=== PATIENT | female | born 2000 | race Caucasian/White ===

== ENCOUNTER 2020-08-01 07:56 | Inpatient (IN) | payer OTHER ==
[~2020-08-01] VITALS: Ht 177.8 cm; Wt 81.6 kg
[~2020-08-01 07:56] MED LIST: OMEPRAZOLE20 MG PO; PEPCID40 MG PO; XULANE PATCH1 EACH TD; ZOFRAN ODT4 MG PO
--- NOTE | 2020-08-02 19:07 | PR ---
[facility] [address] [facility] [place], [place] [address] Signed Progress Notes IP Datetime Report Generated by CPN: 08/02/2020 19:07 PROGRESS NOTES: [id number] Impression: Reassuring Heart Rate Plan: Continue Present Management; Induction; Cervical Ripening VITAL SIGNS: [id number] Vital Signs: Reviewed VS Notable Details: elevated BP, will recheck in 10 minutes EXAM: [id number] Dilatation: 1.5 Effacement: 80 Station: -2 Contractions: irregular MEMBRANES: [id number] Comments: EIOL at 40w4d s/p cytotec x 2 (vaginal) Plan: continue cytotec for cervical ripening, has progressed from closed/thick to 1.5cm/80% effaced. Epidural prn for pain. Anticipate amniotomy in am, sooner if progressing well overnight/ internal monitoring needed FETUS A: [id number] FHR Baseline: 150 Variability: Moderate 6-25bpm Accelerations: None Decelerations: None FHR Category: Category I Presentation: Vertex FETUS B: [id number] Signing Physician: Brendan Melissa DO Copies: ~ *Electronically Signed* 08/02/20 190 BRENDAN MELISSA DO PATIENT NAME: GRICELDA GONSALEZ PROGRESS NOTE DATE OF : 99 PHYSICIAN: BRENDAN MELISSA DO RPT #: [id number] REPORT IS CONFIDENTIAL AND NOT TO BE RELEASED WITHOUT AUTHORIZATION
--- NOTE | 2020-08-02 20:39 | NUR ---
[facility] RAPID COVID TEST DONE PER ORDER. COVID TEST COLLECTED FROM BOTH NARES W/O ISSUE. PT TOLERATED WELL.
--- NOTE | 2020-08-02 22:49 | PR ---
[facility] [address] [place], [place] [address] Signed Progress Notes IP Datetime Report Generated by CPN: 08/02/2020 22:49 PROGRESS NOTES: [id number] Impression: Reassuring Heart Rate Other Procedures: Cook catheter placement Plan: Continue Present Management; Cervical Ripening VITAL SIGNS: [id number] Vital Signs: Reviewed VS Notable Details: elevated BP, will recheck in 10 minutes EXAM: [id number] Dilatation: 1.5 Effacement: 80 Station: -2 Contractions: irregular MEMBRANES: [id number] Membranes Status: Intact Comments: EIOL at 40 4/7 weeks gestation s/p cytotec x 2, unable to place 3rd due to tachysystole which palpates mild, nonresponsive to fluid bolus cook catheter discussed with pt, placed without difficulty. 40mL sterile saline in each balloon, plan to add 20mL to each balloon every 20 minutes until 80mL in both balloons. FETUS A: [id number] FHR Baseline: 150 Variability: Moderate 6-25bpm Accelerations: None Decelerations: None FHR Category: Category I Presentation: Vertex FETUS B: [id number] Signing Physician: Brendan Melissa DO Copies: ~ *Electronically Signed* 08/02/20 4706 BRENDAN MELISSA DO PATIENT NAME: GRICELDA GONSALEZ PROGRESS NOTE DATE OF : 99 PHYSICIAN: BRENDAN MELISSA DO RPT #: [id number] REPORT IS CONFIDENTIAL AND NOT TO BE RELEASED WITHOUT AUTHORIZATION
--- NOTE | 2020-08-03 04:03 | PR ---
[facility] [address] [facility] [place] [facility] [place], [place] [address] Signed Progress Notes IP Datetime Report Generated by CPN: 08/03/2020 04:03 PROGRESS NOTES: [id number] Impression: Normal Progression of Labor Procedures: Intrauterine Pressure Catheter Other Procedures: Cook catheter placement Plan: Continue Present Management VITAL SIGNS: [id number] Vital Signs: Reviewed VS Notable Details: elevated BP, will recheck in 10 minutes EXAM: [id number] Dilatation: 5.5 Effacement: 80 Station: -2 Contractions: irregular MEMBRANES: [id number] Membranes Status: Intact Comments: EIOL, now 40 5/7 weeks gestation s/p cytotec x [address] for 4 hours s/p SROM moderate amount clear fluid IUPC placed without difficulty Continue close monitoring FETUS A: [id number] FHR Baseline: 150 Variability: Moderate 6-25bpm Accelerations: None Decelerations: None FHR Category: Category I Presentation: Vertex FETUS B: [id number] Signing Physician: Brendan Melissa DO Copies: ~ *Electronically Signed* 08/03/20 0403 BRENDAN MELISSA DO PATIENT NAME: GRICELDA GONSALEZ PROGRESS NOTE DATE OF : 99 PHYSICIAN: BRENDAN MELISSA DO RPT #: [id number] REPORT IS CONFIDENTIAL AND NOT TO BE RELEASED WITHOUT AUTHORIZATION
--- NOTE | 2020-08-03 04:16 | PR ---
[facility] [address] [facility] [place], [place] [address] Signed Progress Notes IP Datetime Report Generated by CPN: 08/03/2020 04:16 PROGRESS NOTES: [id number] Impression: Normal Progression of Labor Procedures: Scalp Electrode Other Procedures: Cook catheter placement Plan: Continue Present Management VITAL SIGNS: [id number] Vital Signs: Reviewed VS Notable Details: elevated BP, will recheck in 10 minutes EXAM: [id number] Dilatation: 5.5 Effacement: 80 Station: -2 Contractions: irregular MEMBRANES: [id number] Membranes Status: Intact Comments: FSE placed without difficulty FETUS A: [id number] FHR Baseline: 150 Variability: Moderate 6-25bpm Accelerations: None Decelerations: None FHR Category: Category I Presentation: Vertex FETUS B: [id number] Signing Physician: Brendan Melissa DO Copies: ~ *Electronically Signed* 08/03/20 0416 BRENDAN MELISSA DO PATIENT NAME: GRICELDA GONSALEZ PROGRESS NOTE DATE OF : 99 PHYSICIAN: BRENDAN MELISSA DO RPT #: [id number] REPORT IS CONFIDENTIAL AND NOT TO BE RELEASED WITHOUT AUTHORIZATION
--- NOTE | 2020-08-03 05:27 | PR ---
[facility] [address] [place], [place] [address] Signed Progress Notes IP Datetime Report Generated by CPN: 08/03/2020 05:27 PROGRESS NOTES: [id number] Impression: Non-reassuring Heart Rate Procedures: Scalp Electrode Other Procedures: Cook catheter placement Plan: Deliver- Section Informed Consent Obtain: Section Delivery; Risks, Benefits and Alternatives Discussed VITAL SIGNS: [id number] Vital Signs: Reviewed VS Notable Details: elevated BP, will recheck in 10 minutes EXAM: [id number] Dilatation: 5.5 Effacement: 80 Station: -2 Contractions: irregular MEMBRANES: [id number] Membranes Status: Ruptured Comments: EIOL at 40 5/7 weeks gestation s/p cytotec x 2, cook catheter, SROM Nonreassuring heart tones, previously responsive to maternal repositioning Ephedrine 5mg administered IV Risks, benefits, and alternatives to including risks of bleeding, infection, damage to surrounding organs, need for repeat or referral for TOLAC discussed with pt and FOB (present at bedside). Questions answered to their apparent satisfaction and they elected to proceed. FETUS A: [id number] FHR Baseline: 150 Variability: Moderate 6-25bpm Accelerations: None Decelerations: None FHR Category: Category I Presentation: Vertex FETUS B: [id number] Signing Physician: Brendan Melissa DO *Electronically Signed* 08/03/20 0527 BRENDAN MELISSA DO PATIENT NAME: GRICELDA GONSALEZ PROGRESS NOTE DATE OF : 99 PHYSICIAN: BRENDAN MELISSA DO RPT #: [id number] REPORT IS CONFIDENTIAL AND NOT TO BE RELEASED WITHOUT AUTHORIZATION [address], [place] [address] Signed Copies: ~ *Electronically Signed* 08/03/20 0527 BRENDAN MELISSA DO PATIENT NAME: GRICELDA GONSALEZ PROGRESS NOTE DATE OF : 99 PHYSICIAN: BRENDAN MELISSA DO RPT #: [id number] REPORT IS CONFIDENTIAL AND NOT TO BE RELEASED WITHOUT AUTHORIZATION
--- NOTE | 2020-08-03 07:06 | NUR ---
08/03/20 0706 Linsey Rob 0700 PATIENT ARRIVES TO ROOM 101, AWAKE OFF/ON, BUT VERY DROWSY. RESP EVEN AND UNLABORED, ROOM AIR SATS >97%. DAD AND BABY IN ROOM. PATIENT DENIES PAIN, ONLY THAT SHE FEELS COLD. WARM BLANKETS ON.
--- NOTE | 2020-08-04 12:54 | PR ---
[facility] [place] [facility] [address] [place], [place] [address] Signed PP Progress Notes Datetime Report Generated by CPN: 08/04/2020 12:54 SUBJECTIVE: [id number] Pain: Within Normal Limits Nausea/Vomiting: Denies Flatus: Yes Bowel Movement: No Vital Signs: [id number] Vital Signs: Reviewed; Within Normal Limits EXAM: Ongoing Cardiovascular: Normal Respiratory: Normal Abdomen/Uterus: Normal Lochia: Normal Extremities: Normal Incision: Normal Progress: Normal Exam Comments: RRR, 1+ bilateral lower extremity edema Fundus firm below umbilicus Incision c/d/i, minimal non-expanding strikethrough on dressing IMPRESSION/PLAN/PROCEDURES: [id number] Impression: Normal Progression Plan: Continue Present Management Procedures: None Progress Notes: POD#1 s/p PLTCS for non-reassuring heart tones -progressing well . Discussed importance of using NSAIDs/tylenol for pain mgmt and healing, currently declining all medications. Using ice for incisional pain, recommended trying abdominal binder for extra support while ambulating. -Herrera removed, unable to void with initial attempt, straight cath for 650mL. Discussed importance of continued attempts and use of aids (peppermint oil, running water), to promote void. Will continue to monitor -tachycardia initially postop, resolved - well O positive/ Rubella Immune Anticipate DC to home tomorrow vs Sunday Signing Physician: Brendan Melissa DO *Electronically Signed* 08/04/20 9816 BRENDAN MELISSA DO PATIENT NAME: GRICELDA GONSALEZ PROGRESS NOTE DATE OF : 99 PHYSICIAN: BRENDAN MELISSA DO RPT #: [id number] REPORT IS CONFIDENTIAL AND NOT TO BE RELEASED WITHOUT AUTHORIZATION [address] [address] Signed Copies: ~ *Electronically Signed* 08/04/20 1254 BRENDAN MELISSA DO PATIENT NAME: GRICELDA GONSALEZ PROGRESS NOTE DATE OF : 99 PHYSICIAN: BRENDAN MELISSA DO RPT #: [id number] REPORT IS CONFIDENTIAL AND NOT TO BE RELEASED WITHOUT AUTHORIZATION
--- NOTE | 2020-08-05 10:21 | PR ---
[facility] [address] [place] [place], [place] [address] Signed PP Progress Notes Datetime Report Generated by CPN: 08/05/2020 10:21 SUBJECTIVE: [id number] Pain: Within Normal Limits Nausea/Vomiting: Denies Flatus: Yes Bowel Movement: Yes Vital Signs: [id number] Vital Signs: Reviewed; Within Normal Limits EXAM: Ongoing Cardiovascular: Normal Respiratory: Normal Abdomen/Uterus: Normal Lochia: Normal Vulva/Perineum: Not Done Breasts: Not Done CVA Tenderness: Normal Extremities: Normal Incision: Normal Progress: Normal Exam Comments: Fundus firm U-2 nontender. Incision healing well. IMPRESSION/PLAN/PROCEDURES: [id number] Impression: Normal Progression Plan: Discharge Procedures: None Progress Notes: Pt seen and examined. Doing well. Ambulating, voiding, and tolerating full diet. Pain and lochia minimal. well. No questions or concerns. Desires d/c home today. Reviewed d/c instructions in detail. All questions answered Signing Physician: Dinesh Smiley DO Copies: ~ *Electronically Signed* 08/05/20 1021 DINESH SMILEY DO PATIENT NAME: GRICELDA GONSALEZ PROGRESS NOTE DATE OF : 99 PHYSICIAN: DINEHS SMILEY DO RPT #: [id number] REPORT IS CONFIDENTIAL AND NOT TO BE RELEASED WITHOUT AUTHORIZATION
--- NOTE | 2020-08-10 07:05 | OR ---
[facility] [address] [place], [place] [address] Signed DATE OF OPERATION: 08/03/2020 SURGEON: Brendan Melissa DO CAR BARN LABORER: Dr. Smiley PREOPERATIVE DIAGNOSES: 1. Forty-weeks gestation. 2. Non-reassuring heart tone, remote from delivery. POSTOPERATIVE DIAGNOSES: 1. Forty-weeks gestation. 2. Non-reassuring heart tone, remote from delivery. 3. Occiput posterior position. ESTIMATED BLOOD LOSS: 450 mL. DRAINS: Herrera. LINES: None. SPECIMENS: Placenta, cord blood, cord gases. FINDINGS: Term, viable female , weighing 7 pounds 3 ounces. Apgars 8 and 9 at one and five minutes, respectively. Normal-appearing uterus and bilateral tubes and ovaries. OPERATIVE PROCEDURE: Primary low-transverse . INDICATIONS: Non-reassuring heart tones. DESCRIPTION OF PROCEDURE: The patient was taken back to the operating room, where she was given 2 g of Ancef. Electronically Signed By: BRENDAN MELISSA DO 08/10/20 0705 PATIENT NAME: GRICELDA GONSALEZ OPERATIVE REPORT DATE OF : 99 REPORT #: [id number] PHYSICIAN: BRENDAN MELISSA DO PCP: BIRGIT RODRIGUEZ MD REPORT IS CONFIDENTIAL AND NOT TO BE RELEASED WITHOUT AUTHORIZATION [facility] [address] [place], [place] [address] Signed Epidural was bolused and SCDs were placed bilaterally. Herrera was already in place. The patient was positioned in supine position with a leftward tilt and prepped and draped in the normal sterile fashion. Anesthesia was found to be adequate. Pfannensteil incision was made with a scalpel and carried through to the underlying fascia. Superficial bleeders were cauterized with Bovie cautery. Fascia was incised with a scalpel and fascial incision was extended laterally using Arriola scissors. Superior and inferior margins of the fascia were grasped with Kochers and elevated and underlying rectus muscle dissected off bluntly and sharply with Arriola scissors. Peritoneum was entered bluntly and incision was extended inferiorly with Arriola scissors with excellent visualization to avoid the bladder. Karsten retractor was placed. Hysterotomy was made yielding a moderate amount of dark thick meconium fluid. 's head was easily grasped and gently elevated to hysterotomy and was delivered without difficulty noting to be in a ROP position. Cord was immediately doubly clamped and cut and baby was handed to awaiting nursery team. Segment of cord was collected for cord gases. Cord blood was collected for type and Shawna. Placenta was extracted manually with gentle cord traction and noted to be meconium stained with a centrally inserted cord. Uterus was cleared of clots and debris. Hysterotomy was closed in a double-layered closed, first with 0-Monocryl in a running fashion and second with 0 Monocryl in an imbricating fashion. Hysterotomy was inspected and noted to be hemostatic. Abdomen was copiously irrigated with sterile saline. Uterus, tubes, and ovaries were inspected, the findings as noted above. Sheet of Acell was placed over the hysterotomy. Peritoneum was closed in a running fashion with 3-0 Vicryl. Rectus muscle was reapproximated with 0-Vicryl in a simple interrupted fashion. Perforating vessels were cauterized with Bovie cautery and Acell powder was applied to rectus muscles. Fascia was closed with 0 Vicryl in a running fashion starting at each apex working medially and meeting at midline. Subcutaneous layer was closed with 3-0 Vicryl in an interrupted fashion and skin was closed with skin clips. Uterus was creded with minimal blood clots. Lap and sponge counts were correct x2. The patient tolerated the procedure well, was taken with baby to Recovery in the LDRP room. Brendan Melissa DO EMZ/MODL /[id number] Electronically Signed By: BRENDAN MELISSA DO 08/10/20 0705 PATIENT NAME: GRICELDA GONSALEZ OPERATIVE REPORT DATE OF : 99 REPORT #: [id number] PHYSICIAN: BRENDAN MELISSA DO PCP: BIRGIT RODRIGUEZ MD REPORT IS CONFIDENTIAL AND NOT TO BE RELEASED WITHOUT AUTHORIZATION [address] [place], [place] [address] Signed Copies: ~ Electronically Signed By: BRENDAN MELISSA DO 08/10/20 0705 PATIENT NAME: GRICELDA GONSALEZ BRADY OPERATIVE REPORT DATE OF : 99 REPORT #: [id number] PHYSICIAN: BRENDAN MELISSA DO PCP: BIRGIT RODRIGUEZ MD REPORT IS CONFIDENTIAL AND NOT TO BE RELEASED WITHOUT AUTHORIZATION
== END 2020-08-05 13:00 | disposition home or self-care (01) | DRG 788 ==
LOC: FBC 08-02 07:53
PROVIDERS: ADMIT Obstetrics & Gynecology; ATTEND Obstetrics & Gynecology
PROC: 3E0P7VZ Introduction of Hormone into Female Reproductive, Via Natural or Artificial Opening (ICD-10-PCS; 2020-08-02)
PROC: 0U7C7ZZ Dilation of Cervix, Via Natural or Artificial Opening (ICD-10-PCS; 2020-08-02)
PROC: 10H07YZ Insertion of Other Device into Products of Conception, Via Natural or Artificial Opening (ICD-10-PCS; 2020-08-03)
PROC: 00HU33Z Insertion of Infusion Device into Spinal Canal, Percutaneous Approach (ICD-10-PCS; 2020-08-03)
PROC: 3E0R3BZ Introduction of Anesthetic Agent into Spinal Canal, Percutaneous Approach (ICD-10-PCS; 2020-08-03)
PROC: 10D00Z1 Extraction of Products of Conception, Low, Open Approach (ICD-10-PCS; principal; 2020-08-03 05:53)
DX: O64.0XX0 Obstructed labor due to incomplete rotation of fetal head, not applicable or unspecified (principal); Z3A.40 40 weeks gestation of pregnancy; Z37.0 Single live birth; O76 Abnormality in fetal heart rate and rhythm complicating labor and delivery; O77.0 Labor and delivery complicated by meconium in amniotic fluid; Z91.040 Latex allergy status; O21.0 Mild hyperemesis gravidarum
CPT/HCPCS: 01961; 36415; 82803; 85027; A9270; C9803; J0456; J0690; J1885; J2001; J2250; J2274; J2405; J2590; J3010; J7121; U0003

== ENCOUNTER 2021-12-19 07:09 | Inpatient (IN) | payer OTHER ==
[~2021-12-19] VITALS: Ht 170.2 cm; Wt 81.6 kg
--- NOTE | 2022-01-10 08:53 | NUR ---
01/10/22 0853 Dottie Gray 0831 PATIENT BACK TO ROOM. REPORT RECIEVED FROM KEYSHA BERMAN. IVF INFUSING WITH 20 OF PIT. SITE IS PATENT. PATIENT IS AWAKE. DENIES ANY PAIN OR NAUSEA. PATIENT UNABLE TO MOVE FEET. SPINAL EDUCATION GIVEN. VITAL SIGNS WNL. 0849 PATIENT HEAD OF BED INCREASED. PATIENT DENIES ANY CONCERNS. BABY ON CHEST WITH FBC RN AT BEDSIDE.
--- NOTE | 2022-01-10 22:28 | OR ---
[facility] [address] [place], [place] [address] Signed DATE OF OPERATION: 01/10/2022 SURGEON: Philip Costa MD Patient of Dr. Costa. PREOPERATIVE DIAGNOSIS: Term , previous section. POSTOPERATIVE DIAGNOSIS: Term , previous section. PROCEDURE: Repeat low transverse segment section, delivery of live female . REED WORKER: Dr. Alvarado. ANESTHESIA: Spinal. ESTIMATED BLOOD LOSS: 400 mL. COMPLICATIONS: None. DRAINS: Herrera to bladder. FINDINGS: Live female infant, Apgars 9 and 9. Weight 7 pounds 7 ounces. Normal uterus. Normal tubes and ovaries bilateral. DESCRIPTION OF PROCEDURE: The patient was brought to the operating room, placed in supine position. After adequate spinal anesthesia was obtained, the patient was prepped and draped in usual sterile fashion. A Herrera catheter was placed in the bladder. A Pfannenstiel skin incision was made through previous surgical scar using a scalpel. The subcutaneous tissue was dissected with Bovie and scalpel. Fascia was nicked with scalpel and Electronically Signed By: PHILIP COSTA MD 01/10/22 2228 PATIENT NAME: GRICELDA GONSALEZ OPERATIVE REPORT DATE OF : 99 REPORT #: [id number] PHYSICIAN: PHILIP COSTA MD PCP: BIRGIT RODRIGUEZ MD REPORT IS CONFIDENTIAL AND NOT TO BE RELEASED WITHOUT AUTHORIZATION [facility] [address] [place], [place] [address] Signed extended in transverse fashion using curved scissors. The underlying abdominal musculature was bluntly and sharply from the fascia above and below the incision. The abdominal musculature was bluntly sharply along the midline. The peritoneum was grasped with hemostats, elevated, nicked with curved scissors, extended vertical fashion using curved scissors. The Karsten self-retaining retractor was inserted into the incision. The lower uterine segment was identified and carefully nicked with scalpel. Bulging bag of clear fluid came from the incision. The incision was extended in transverse fashion using finger dissection and pickups with teeth used to open the amniotic sac. The infant was noted to be in vertex LOT presentation. The head was easily delivered from the incision. The cord was noted to be around the neck. Once this was removed, the rest of the was then easily delivered from the incision. The cord was doubly clamped and cut. The infant passed off table in good condition to awaiting nurse. The placenta was manually removed and the uterine cavity was explored with a lap pad to remove any retained membranes. An angle stitch of 0 Monocryl was placed at one end of the incision and a running locking stitch of 0-Monocryl starting at the other end used to close the incision. A 2nd running stitch of 0 Monocryl was used to imbricate the 1st layer. Good hemostasis was noted. The entire pelvis was irrigated, suctioned and examined noted to have good hemostasis. The anterior wall peritoneum was then closed using running stitch of 2-0 Vicryl suture. The abdominal musculature was reapproximated using interrupted stitch of 0 Vicryl suture. Abdominal wall incision was irrigated, suctioned, and examined, and any bleeding spots cauterized with the Bovie. The fascia was then closed using two running stitch of 0 Vicryl suture meeting in the midline. Subcutaneous tissue was irrigated, suctioned, and examined, and any bleeding spots were cauterized with the Bovie. Subcutaneous tissue was closed using interrupted stitches of 3-0 Vicryl suture and the skin reapproximated using skin clips. The patient tolerated the procedure well, went to recovery room in good condition. The sponge, needle, and instrument count was correct at the end of procedure. MD TR Lopez/MODL /[id number] Electronically Signed By: PHILIP COSTA MD 01/10/22 2228 PATIENT NAME: GRICELDA GONSALEZ OPERATIVE REPORT DATE OF : 99 REPORT #: [id number] PHYSICIAN: PHILIP COSTA MD PCP: BIRGIT RODRIGUEZ MD REPORT IS CONFIDENTIAL AND NOT TO BE RELEASED WITHOUT AUTHORIZATION [facility] [address] [place] [id number] Signed Copies: ~ Electronically Signed By: PHILIP COSTA MD 01/10/22 2228 PATIENT NAME: GRICELDA GONSALEZ OPERATIVE REPORT DATE OF : 99 REPORT #: [id number] PHYSICIAN: PHILIP COSTA MD PCP: BIRGIT RODRIGUEZ MD REPORT IS CONFIDENTIAL AND NOT TO BE RELEASED WITHOUT AUTHORIZATION
--- NOTE | 2022-01-11 09:24 | PR ---
[facility] [address] [facility] [place], [place] [address] Signed PP Progress Notes Datetime Report Generated by CPN: 01/11/2022 09:24 SUBJECTIVE: [id number] Pain: Within Normal Limits Nausea/Vomiting: Denies Vital Signs: [id number] Vital Signs: Reviewed; Within Normal Limits EXAM: Ongoing Abdomen/Uterus: Normal Lochia: Normal Extremities: Normal Incision: Normal IMPRESSION/PLAN/PROCEDURES: [id number] Impression: Normal Progression Plan: Continue Present Management Procedures: None Progress Notes: Doing well, without complaint. Sitting up, has been moving and voiding without difficulty. Patient had elevated BP's last night, so PIH Panel and Urine PC Ratio done, which were normal; better today. D/C Herrera this morning. Signing Physician: Jaylan Mcdonough MD Copies: ~ *Electronically Signed* 01/11/22923 JAYLAN MCDONOUGH MD PATIENT NAME: GRICELDA GONSALEZ PROGRESS NOTE DATE OF : 99 PHYSICIAN: JAYLAN MCDONOUGH MD RPT #: [id number] REPORT IS CONFIDENTIAL AND NOT TO BE RELEASED WITHOUT AUTHORIZATION
--- NOTE | 2022-01-12 08:26 | PR ---
[facility] [address] [place] [address] Signed PP Progress Notes Datetime Report Generated by CPN: 01/12/2022 08:26 SUBJECTIVE: [id number] Pain: Within Normal Limits Nausea/Vomiting: Denies Vital Signs: [id number] Vital Signs: Reviewed; Within Normal Limits Notable Details: Hgb/Hct = 9.9/29.7 EXAM: Ongoing Abdomen/Uterus: Normal Lochia: Normal Extremities: Normal Incision: Normal IMPRESSION/PLAN/PROCEDURES: [id number] Impression: Normal Progression Other Impression: PP Anemia Plan: Discharge Procedures: None Progress Notes: Doing well, without complaint. Ready to go home. Signing Physician: Jaylan Mcdonough MD Copies: ~ *Electronically Signed* 01/12/22 0826 JAYLAN MCDONOUGH MD PATIENT NAME: GRICELDA GONSALEZ PROGRESS NOTE DATE OF : 99 PHYSICIAN: JAYLAN MCDONOUGH MD RPT #: [id number] REPORT IS CONFIDENTIAL AND NOT TO BE RELEASED WITHOUT AUTHORIZATION
== END 2022-01-12 11:35 | disposition home or self-care (01) | DRG 787 ==
LOC: FBC 01-10 05:28
PROVIDERS: ADMIT General Practice; ATTEND General Practice
PROC: 10D00Z1 Extraction of Products of Conception, Low, Open Approach (ICD-10-PCS; principal; 2022-01-10 07:00)
DX: O34.211 Maternal care for low transverse scar from previous cesarean delivery (principal); D62 Acute posthemorrhagic anemia; Z3A.00 Weeks of gestation of pregnancy not specified; Z37.0 Single live birth; O99.02 Anemia complicating childbirth; J45.909 Unspecified asthma, uncomplicated; Z20.822 Contact with and (suspected) exposure to COVID-19; O99.52 Diseases of the respiratory system complicating childbirth; Z91.040 Latex allergy status; Z98.890 Other specified postprocedural states
CPT/HCPCS: 01961; 36415; 64488; 76942; 82565; 82570; 84156; 84450; 84520; 84550; 85027; 85060; 86850; 86900; 86901; 87502; A9270; J0690; J1100; J2001; J2370; J2405; J2590; J2795; J7121; U0003